=== PATIENT | female | born 1955 | race Caucasian/White ===

== ENCOUNTER 2018-11-01 10:08 | Emergency (ER) | payer BC ==
[~2018-11-01] VITALS: Ht 167.6 cm; Wt 68.0 kg
[2018-11-01 10:32] VITALS: BP 160/80
[2018-11-01] MEDS ORDERED: methylPREDNISolone SOD SUCC PF 125 MG/2 ML VIAL. IM ONE (10:45)
[2018-11-01] MEDS ORDERED: diphenhydrAMINE HCL 25 MG CAPSULE PO ONE (10:45)
[2018-11-01] MEDS ORDERED: METH4TAB2 PO (11:41)
--- NOTE | 2018-11-01 11:42 | PHYS DOC ---
Past Medical History Past Medical History: Hypertension Additional Past Surgical Histo: carpel tunnel Alcohol Use: None Drug Use: None Adult General Chief Complaint Chief Complaint: EYE PROBLEMS HPI HPI 62-year-old female presents to ER via POV with complaints of swelling and itching surrounding her eyes. Patient reports symptoms started yesterday evening and have gradually worsened. Patient denies any eye pain, drainage, or vision change. Patient states she had contact lenses and yesterday did take those out due to the swelling and irritation to skin surrounding her eyes. Patient denies any new lotions or facial creams. Patient denies any other areas on her with itching or redness. Patient denies sore throat or throat swelling. Patient denies shortness of air or wheezing. 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 She denies any [id number] medications for itching. Review of Systems Review of Systems Constitutional: Denies fever or chills [] Eyes: Denies change in visual acuity or eye pain. Reports itching surrounding eyes with no pain with eye movement or eye drainage HENT: Denies nasal congestion or sore throat [] Respiratory: Denies cough or shortness of breath [] Cardiovascular: Denies CP/tightness GI: Denies abdominal pain, nausea, vomiting, bloody stools or diarrhea [] Musculoskeletal: Denies back/neck pain or joint pain [] Integument: Reports bilat. skin itching, redness swelling surrounding eyes- denies inability to open/close eyelids Neurologic: Denies headache, focal weakness or sensory changes. Denies dizziness All other systems were reviewed and found to be within normal limits, except as documented in this note. Current Medications Current Medications Current Medications Medications (Trade) Dose Ordered Sig/Renetta Start Time Stop Time Status Last Admin Dose Admin Diphenhydramine HCl (Benadryl) 25 mg 1X ONCE 11/01/18 10:45 11/01/18 10:52 DC 11/01/18 10:52 25 MG Methylprednisolone Sodium Succinate (SOLU-Medrol 125MG VIAL) 125 mg 1X ONCE 11/01/18 10:45 11/01/18 10:52 DC 11/01/18 10:52 125 MG Allergies Allergies Allergies Coded Allergies Type Severity Reaction Last Updated Verified phenytoin Allergy Severe hives 11/01/18 Yes Physical Exam Physical Exam Constitutional: Well developed, well nourished, no acute distress, non-toxic appearance. [] HENT: Normocephalic, atraumatic, bilateral ears normal, oropharynx moist-no pharyngeal erythema or swelling, uvula midline, no oral exudates, nose normal. [ ] Eyes: 3mm PERRLA, EOMI- no eye pain with movements, no nystagmus, conjunctiva/ sclera normal- no irritation. No stye on bilat. eyes. No FB, no discharge. Erythema bilat. orbital area- with swelling below bilat. eyes into cheeks Neck: Normal range of motion, no tenderness, supple, no stridor. No gross adenopathy Cardiovascular: Heart rate regular rhythm, no murmur [] Lungs & Thorax: Bilateral breath sounds clear to auscultation. Resp. equal/ nonlabored Skin: Warm, dry, no erythema, no rash. [] erness. [] Extremities: No tenderness, no cyanosis, ROM intact, no edema. [] Neurologic: Alert and oriented X 3, normal motor function, normal sensory function, no focal deficits noted. [] Psychologic: Affect normal, judgement normal, mood normal. [] Current Patient Data Vital Signs Vital Signs Date Time Temp Pulse Resp B/P (MAP) Pulse Ox O2 Delivery O2 Flow Rate FiO2 11/01/18 10:32 97.8 92 18 160/80 (106) 97 Room Air 97.8 EKG EKG [] Radiology/Procedures Radiology/Procedures [] Course & Med Decision Making Course & Med Decision Making Patient was evaluated in the ER for bilateral swelling and itching around her eyes. Patient had no vision changes with eye exam normal limits as her sclera and conjunctiva were clear. Patient was given dose of Solu-Medrol and Benadryl while in the ER and had improvement of swelling with patient stating her itching had subsided and she was able to open her eyes more she felt. Patient denied headache, dizziness, shortness of air, or feeling her throat was swollen. At time of reevaluation patient was in no visible distress, speaking in full sentences, and nontoxic in appearance. Discussed with improved symptoms patient would be discharged home with Medrol Dosepak and continue on using over- the-counter antihistamines. Patient advised on cool compresses to affected area. Patient provided on signs and symptoms to return to ER for and discharge instructions were discussed. Patient advised if symptoms persist or with concerns she should follow-up with her primary care physician in next 1-2 days for reevaluation. Patient comfortable with home discharge as discussed. Dragon Disclaimer Dragon Disclaimer This electronic medical record was generated, in whole or in part, using a voice recognition dictation system. Departure Departure Impression: Primary Impression: Allergic reaction Additional Impression: Contact dermatitis Disposition: HOME, SELF-CARE Condition: STABLE Referrals: UNKNOWN PCP NAME (PCP) Patient Instructions: Contact Dermatitis Additional Instructions: You were given a dose of Benadryl and Solu-Medrol (steroid) while in the ER- you can take [id number] Benadryl if symptoms persist as directed on container. If symptoms persist follow-up with your primary care physician in next 1-2 days for reevaluation sooner with any concerns. Avoid lotions or creams to face until symptoms resolve. With any vision changes , eye pain, dizziness, or headache return to the emergency department or follow- up with your primary doctor. Scripts Methylprednisolone (MEDROL) 4 Mg Tab.ds.pk 1 PKG PO UD, #1 PKG 0 Refills Prov: TANA GORDON APRN 11/01/18 Problem Qualifiers TANA GORDON APRN Nov 01, 2018 11:42
== END 2018-11-01 11:45 | disposition home or self-care (01) ==
LOC: ER 10:08
DX: L23.9 Allergic contact dermatitis, unspecified cause (principal); I10 Essential (primary) hypertension; Z88.8 Allergy status to other drugs, medicaments and biological substances; X58.XXXA Exposure to other specified factors, initial encounter
CPT/HCPCS: 96372; 99283; J2930; Q0163